=== PATIENT | female | born 1995 | race Hispanic/Latino ===

== ENCOUNTER 2021-02-19 18:11 | Inpatient (IN) | payer BC ==
[~2021-02-19] VITALS: Ht 154.9 cm; Wt 114.3 kg
[~2021-02-19 18:11] MED LIST: CEFAZOLIN SODIUM 1 GM VIAL IVP ONE
[2021-02-19] MEDS ORDERED: AMPICILLIN 2GM+NS 100ML IV ONE (20:00)
[2021-02-19] MEDS: LACTATED RINGERS 1000ML 1,000 ML IV PRN ×2 (20:07→21:50)
[2021-02-19 20:11] LABS: HEMATOCRIT 39.9 % (42-54); MEAN CORPUSCULAR HEMOGLOBIN 28.4 pg (27.0-33.0); MEAN CORPUSCULAR HGB CONC 33.1 g/dL (32.0-36.0); RED BLOOD CELL COUNT(AUTO) 4.64 MIL/uL (4.50-6.20); RED CELL DISTRIBUTION WIDTH 14.7 % (11.0-15.5); WHITE BLOOD COUNT (AUTO) 10.8 K/uL (4.8-10.8)
[2021-02-19] MEDS ORDERED: FLUT8AER3 IH (20:11)
[2021-02-19] MEDS ORDERED: PREN1TAB80 PO (20:11)
[2021-02-19 20:13] VITALS: BP 130/71
[2021-02-19] MEDS ORDERED: LACTATED RINGERS 500 ML 500 ML IV PRN (21:00)
[2021-02-19] MEDS ORDERED: ROPIVACAINE 0.2% 100ML VIAL 100 ML EP PRN (21:00)
[2021-02-19] MEDS ORDERED: NALOXONE HCL 0.4 MG/1 ML ML IV PRN (21:00)
[2021-02-19] MEDS ORDERED: EPHEDRINE SULFATE 50 MG/ML AMPULE IVP PRN (21:00)
[2021-02-19] MEDS ORDERED: FENTANYL CITRATE PF 50 MCG/1 ML 2ML VIAL ONE (21:04)
[2021-02-19] MEDS ORDERED: OXYTOCIN-LR 20 UNITS/1000 ML 1,000 ML IV ONE (21:27)
[2021-02-19] MEDS ORDERED: LIDOCAINE HCL 1% 20 ML VIAL ONE (21:27)
[2021-02-19] MEDS ORDERED: OXYTOCIN-LR 20 UNITS/1000 ML 1,000 ML IV SCH (22:00)
[2021-02-20] VITALS (7 sets, daily range): BP systolic 99–121; BP diastolic 50–72
[2021-02-20] MEDS ORDERED: LANOLIN 30GM OINTMENT TP PRN
[2021-02-20] MEDS ORDERED: ACETAMINOPHEN 325 MG TAB PO PRN
[2021-02-20] MEDS ORDERED: AMPICILLIN 1GM+NS 50ML IV SCH
[2021-02-20] MEDS ORDERED: WITCH HAZEL 1 PAD TP PRN
[2021-02-20] MEDS ORDERED: ACETAMINOPHEN WITH CODEINE 1 TAB TAB PO PRN
[2021-02-20] MEDS ORDERED: BENZOCAINE/LANOLIN/ALOE VERA 60 ML AEROSOL TP PRN
[2021-02-20] MEDS ORDERED: CEFAZOLIN SODIUM 1 GM VIAL ONE (00:48)
[2021-02-20 06:57] LABS: HEMATOCRIT 37.1 % (36-48); MEAN CORPUSCULAR HEMOGLOBIN 28.7 pg (27.0-33.0); MEAN CORPUSCULAR HGB CONC 31.8 g/dL (32.0-36.0); MEAN CORPUSCULAR VOLUME 90.3 fL (79-99); RED BLOOD CELL COUNT(AUTO) 4.11 MIL/uL (4.00-5.50); RED CELL DISTRIBUTION WIDTH 14.9 % (11.0-15.5); WHITE BLOOD COUNT (AUTO) 14.1 K/uL (4.8-10.8)
[2021-02-20] MEDS: DOCUSATE SODIUM 100 MG CAP PO SCH ×2 (09:35→21:31)
[2021-02-20] MEDS: IBUPROFEN 600 MG TABLET PO PRN (09:37)
[2021-02-20 13:08] LABS: RAPID PLASMA REAGIN NONREACTIVE (NONREACTIVE)
[2021-02-21 04:10] VITALS: BP 126/76
[2021-02-21] MEDS: IBUPROFEN 600 MG TABLET PO PRN (04:33)
[2021-02-21 07:14] LABS: HEPATITIS Bs ANTIGEN SCREEN P Negative (Negative)
[2021-02-21 07:50] VITALS: BP 97/65
[2021-02-21] MEDS: DOCUSATE SODIUM 100 MG CAP PO SCH (09:00)
== END 2021-02-21 11:30 | disposition home or self-care (01) | DRG 807 ==
LOC: EDH 18:11 → EDSEX 18:29 → LDH 18:29 → OBSVTOIN 18:29 → WSH 02-20 02:03
PROVIDERS: ADMIT Obstetrics & Gynecology; ATTEND Obstetrics & Gynecology
PROC: 10E0XZZ Delivery of Products of Conception, External Approach (ICD-10-PCS; principal; 2021-02-19)
PROC: 3E0R3BZ Introduction of Anesthetic Agent into Spinal Canal, Percutaneous Approach (ICD-10-PCS; 2021-02-19)
PROC: 00HU33Z Insertion of Infusion Device into Spinal Canal, Percutaneous Approach (ICD-10-PCS; 2021-02-19)
DX: O24.420 Gestational diabetes mellitus in childbirth, diet controlled (principal); Z37.0 Single live birth; O99.214 Obesity complicating childbirth; E66.01 Morbid (severe) obesity due to excess calories; O99.52 Diseases of the respiratory system complicating childbirth; J45.909 Unspecified asthma, uncomplicated; Z3A.38 38 weeks gestation of pregnancy
CPT/HCPCS: 36415; 82120; 82947; 85027; 86592; 86701; 86850; 86900; 86901; 87340; 87390; A4314; G0378; J0290; J0690; J2590; J3010; J7120